=== PATIENT | male | born 1955 | race Caucasian/White ===

== ENCOUNTER 2016-10-14 13:12 | Inpatient (IN) | payer OTHER ==
--- NOTE | ~2016-10-14 | DS ---
Discharge Summary [facility] [address] [place]. [address] NAME: BELINDA FELDMAN : 59 STATUS : DIS IN PAT#: [id number] AGE: 61 ADM/REG DATE : 10/14/16 MR#: [id number] REPORT SERV DATE: 10/19/16 DICTATED BY: JOSE PERSON DATE: 10/18/16 REPORT STATUS : Draft TRANSCRIBED BY: MODL DATE: 10/18/16 ADMISSION DATE: 10/14/2016 DISCHARGE DATE: 10/18/2016 DISCHARGE DIAGNOSIS: 1. Acute flash pulmonary edema secondary to malignant hypertension causing acute hypoxic respiratory failure. 2. Acute kidney injury. 3. Diabetes type 2. 4. Obstructive sleep apnea on chronic CPAP. 5. Diabetic foot ulcer. 6. Malignant hypertension. 7. Likely hyperbaric pulmonary injury. 8. Chronic kidney disease stage 3. CONSULTATIONS: Renal. PERTINENT LABS: Creatinine elevation up to 3.73 down to 3.22 at time of discharge. DISCHARGE MEDICATIONS: Amlodipine 10 mg one tab p.o. daily, aspirin 81 mg one tab p.o. at bedtime, fenofibrate 160 mg one tab p.o. daily, Plavix 75 mg one tab p.o. daily, insulin pump, Zyrtec 10 mg one tab p.o. at bedtime, Ritalin 20 mg p.o. every morning and 10 mg at 1400, Bystolic 10 mg one tab p.o. daily, Prilosec 20 mg one tab p.o. daily, clonidine patch 0.1 mg transdermal q.7 days, simvastatin, Crestor 40 mg one tab p.o. at bedtime, one 1 cap probiotics [id number], Avalide is stopped at this time, B1 complex, Bydureon q.7 days , Catapres discontinued. Discharge followup with PCP in one week for blood pressure and BMP checks, followed by Dr. Hendrix as previously ordered in [facility]. Follow up with Nephrology in 2 weeks for BMP and blood pressure. Daily weights and blood pressure diary to be performed by patient twice a day. HOSPITAL COURSE: Please see H and P for complete details. HISTORY OF PRESENT ILLNESS: Briefly, Mr. Feldman is a 61-year-old male with past medical history of CKD stage 3, insulin-dependent diabetes with history of noncompliance and resultant diabetic foot ulcers under the care of Dr. Hendrix in Wound Care, who has had difficulty with his blood pressure for months now, who is undergoing hyperbaric oxygen chamber treatment, noted to have fairly sudden onset dyspnea with accelerated hypertension. Upon arrival to the emergency room, was noted to be in acute hypoxic respiratory failure requiring BiPAP, diuresis. The patient responded well to initial diuresis and BiPAP, and flash pulmonary edema had resolved fairly quickly in 24 to 48 hours. The patient did have subsequent also findings of DIAMANTE above his CKD that was resulted on lab work in next 24 to 48 hours, which also prompted Nephrology consultation. The patient was stopped off the patient's ARB and Bumex was also discontinued. As the patient's respiratory status had improved, the patient did have peak of creatinine and was monitored. Symptomatically, Discharge Summary [address] [address] NAME: BELINDA FELDMAN : 59 STATUS : DIS IN PAT#: [id number] AGE: 61 ADM/REG DATE : 10/14/16 MR#: [id number] REPORT SERV DATE: 10/19/16 DICTATED BY: JOSE PERSON DATE: 10/18/16 REPORT STATUS : Draft TRANSCRIBED BY: MODL DATE: 10/18/16 patient felt well, ambulatory with no pain. Blood pressure was significantly improved after placement on clonidine patch, as the patient's typical pressures at home had been ranging from 190s systolic and had improved to 120s over 50s by time of discharge. Nephrotoxins were held. The patient was able to be discharged home. All questions answered. Patient's family at bedside. DDN/MODL Jose Person MD / [id number]
--- NOTE | ~2016-10-14 | HP ---
History And Physical [address] [place]. [address] NAME: BELINDA FELDMAN : 59 STATUS : ADM IN [facility]#: [id number] AGE: 61 ADM/REG DATE : 10/14/16 MR#: [id number] REPORT SERV DATE: 10/15/16 DICTATED BY: SAILAJA TSAI DATE: 10/15/16 REPORT STATUS : Draft TRANSCRIBED BY: RAMIREZ DATE: 10/15/16 DATE OF ADMISSION: 10/14/2016 CHIEF COMPLAINT: Shortness of breath. HISTORY OF PRESENT ILLNESS: This is a 61-year-old gentleman with medical history significant for chronic kidney disease stage 3; diabetes mellitus; diabetes foot ulcer, being followed up at the [facility] by Dr. Hendrix; obstructive sleep apnea; chronic kidney disease; hypertension; history of right carotid stenosis, status post endarterectomy; insulin dependent diabetes, currently on insulin pump, who presented to the hospital with complaints of shortness of breath. The patient reports that he follows up at [facility] under the care of Dr. Hnedrix and usually goes for the hyperbaric oxygen therapy. He reports that he started hyperbaric oxygen, which he started about five weeks ago, usually goes about five days a week, has had three weeks of success with therapy. He reports that the treatment has been complicated by increased pressure in his head and has been told to may have had some biotrauma. However, he continues to tolerate the treatment fairly well without any significant complication. The patient reports that he noticed that in the last few days he has been having progressive shortness of breath, initially on exertion, and both at rest, has also noted some mild bilateral lower extremity swelling, abdominal distention with some facial puffiness. The patient reports that he has history of sleep apnea, noted that on the morning of presentation had some episodes of apnea while asleep. woke him up without any significant complication, was able to go back to sleep. The patient noted that he came for the hyperbaric treatments at the hospital today. While having this treatment, he had severe persistent, dry cough with significant shortness of breath. He noticed that at both treatment he was unable to breathe, both on exertion and at rest and decided to come to the emergency room for further evaluation. In the ER, the patient was noted to have an ABG of 7.34, PaCO2 of 41, PO2 of 56 with a chest x-ray consistent with flash pulmonary edema. The patient was given a dose of IV Lasix. The Hospitalist Team was called to admit the patient for further evaluation. PAST MEDICAL HISTORY: 1. Diabetic foot ulcer. 2. Insulin diabetes mellitus type 2. 3. Hypertension. 4. History of TIA. 5. History of coronary artery disease. 6. Hyperlipidemia, chronic kidney disease stage 3, sleep apnea, peripheral arterial disease, erectile dysfunction. PAST SURGICAL HISTORY: 1. Left toe amputation by Dr. Yañez. 2. Excision/debridement of skin subcutaneous tissue, muscle fascia of the right foot ulcer on 08/16/2016. 3. Carotid artery with stent placement. History And Physical [address] [address] NAME: BELINDA FELDMAN : 59 STATUS : ADM IN [facility]#: [id number] AGE: 61 ADM/REG DATE : 10/14/16 MR#: [id number] REPORT SERV DATE: 10/15/16 DICTATED BY: SAILAJA TSAI DATE: 10/15/16 REPORT STATUS : Draft TRANSCRIBED BY: RAMIREZ DATE: 10/15/16 SOCIAL HISTORY: Denies drinking alcohol, smoking cigarettes, or illicit drug use. FAMILY HISTORY: Significant for history of diabetes and nephropathy in his brother as well as some diabetes in his other members of the family, hypertension with some chronic kidney disease. ALLERGIES: NO KNOWN DRUG ALLERGY. HOME MEDICATIONS: 1. Aspirin 81 mg p.o. at bedtime. 2. Zyrtec 10 mg p.o. at bedtime. 3. Crestor 40 mg p.o. at bedtime. 4. Prilosec 20 mg p.o. daily. 5. Ritalin 20 mg p.o. every morning. 6. Ritalin 10 mg p.o. at 2 p.m. 7. Probiotics 1 tab p.o. daily. 8. Amlodipine 10 mg p.o. daily. 9. Avalide 300/12.5 one tab p.o. daily. 10.Plavix 75 mg p.o. daily. 11.Fenofibrate 750 mg p.o. daily. 12.B1 chromium 200 mcg p.o. daily. 13.Insulin aspart for insulin pump and sliding scale. 14.Insulin aspart, also on sliding scale. 15.Bydureon extended release injection 2 mg subcu every week. 16.Bystolic 10 mg p.o. daily. 17.Clonidine 0.1 mg p.o. daily. 18.Clonidine 0.1 mg greater than 160. REVIEW OF SYSTEMS: A 12-point review of system conducted essentially negative. Positive findings as per HPI. PHYSICAL EXAMINATION: VITAL SIGNS: Blood pressure 124/58, temperature 97, pulse 79, and saturating 94% on 10 L of oxygen. GENERAL: In acute respiratory distress, unable to speak in full sentences. Using accessory muscles for respiration. HEENT: Normocephalic atraumatic. Extraocular muscle intact. Pupils equal, round, and reactive. Not pale. Anicteric. NECK: No JVD. No cervical lymphadenopathy. CHEST: Nontender, equal expansion. LUNGS: Diffuse expiratory wheezes as well as diffuse crackles noted in all lung askew. ABDOMEN: Bowel sounds normoactive. Obese, nontender. No palpably enlarged organomegaly. EXTREMITIES: Noted for amputation of the left toe with a wound ulcer on the heel with dressing in place. Trace bilateral pitting edema. NEURO: Alert and oriented x3. Cranial nerve 2 through 12 intact. Strength 5/5 in all extremities. History And Physical [address] [address] NAME: BELINDA FELDMAN : 59 STATUS : ADM IN [facility]#: [id number] AGE: 61 ADM/REG DATE : 10/14/16 MR#: [id number] REPORT SERV DATE: 10/15/16 DICTATED BY: SAILAJA TSAI DATE: 10/15/16 REPORT STATUS : Draft TRANSCRIBED BY: MODL DATE: 10/15/16 LABORATORY DATA: Blood gas pH 7.37, pCO2 of 41, PaO2 of 55. Hematology: WBC 8.1, hemoglobin 11.8, hematocrit 35.5, MCV 86.4, platelet 223. PT 13.0. INR 1.0. BNP 255.9. IMAGING: Chest x-ray: Pulmonary edema pattern per history. This occurred while the patient was in hyperbaric chamber. Cases have been reported of pulmonary edema related to hyperbaric therapy. Additional noncardiac causes could be considered such as allergic reaction and aspiration. SUMMARY: This is a 61-year-old gentleman with medical history significant for coronary artery disease, diabetes mellitus, foot ulcer, chronic kidney disease stage 3, insulin diabetes mellitus, who presented to the hospital with complaints of shortness of breath while receiving hyperbaric oxygen concerning for acute respiratory failure with flash pulmonary edema. ASSESSMENT AND PLAN: 1. Acute respiratory failure secondary to flash pulmonary edema, may be related to hyperbaric oxygen-induced injury. There have been case report, also there have been case reports with similar presentation, and however, it is imperative to rule out a congestive heart failure in this patient as most patients who present with flash pulmonary edema have evidence of reduced EF. Hence, I will start the patient on IV Bumex drip, place patient on BiPAP, monitor strict I's and O's, daily weight, and obtain an echocardiogram in the morning. Chronic kidney disease with creatinine of 2.37. The patient's creatinine is at baseline. We will resume diuretics as dictated above. We will continue to monitor cranial function closely. 2. Diabetic foot ulcer. The patient under the care of Dr. Hendrix. We will consult Dr. Hendrix for further recommendation. 3. Coronary artery disease. No evidence of chest pain. Troponin less than 0.02. EKG not consistent with NSTEMI or STEMI. No evidence of ischemia. We will continue to monitor patient closely. We will resume outpatient cardiac medications. 4. Obstructive sleep apnea. We will continue BiPAP treatment at this time and switch to CPAP when patient is able to tolerate. 5. Insulin, treated diabetes mellitus. The patient has an insulin pump. Also uses Bydureon. Please look into the list of medication for the patient at this time. He says that he does a better job to control his blood sugar while in the hospital using the insulin pump and Bydureon. Hence, we will monitor patient's blood glucose and allow patient to use his insulin pump as needed. ADMISSION DISPOSITION: Cardiac tele. ADMISSION STATUS: Inpatient. CODE STATUS: Full code. DVT prophylaxis. On subcu heparin. History And Physical [address] [place] [facility] [address] NAME: BELINDA FELDMAN : 59 STATUS : ADM IN [facility]#: [id number] AGE: 61 ADM/REG DATE : 10/14/16 MR#: [id number] REPORT SERV DATE: 10/15/16 DICTATED BY: SAILAJA TSAI DATE: 10/15/16 REPORT STATUS : Draft TRANSCRIBED BY: MODL DATE: 10/15/16 KELLIO/MODL Sailaja Tsai MD / [id number] CC: MD Sean Abreu M.D. John Gwin Jr., M.D. Sachin V Phade, M.D.
--- NOTE | ~2016-10-14 | CN ---
Consultation Report [facility] [address] [place]. [address] NAME: BELINDA FELDMAN : 59 STATUS : ADM IN PAT#: [id number] AGE: 61 ADM/REG DATE : 10/14/16 MR#: [id number] REPORT SERV DATE: 10/17/16 DICTATED BY: MAYA HERNANDEZ DATE: 10/16/16 REPORT STATUS : Draft TRANSCRIBED BY: MODL DATE: 10/16/16 NEPHROLOGY CONSULTATION DATE OF CONSULTATION: 10/16/2016 REASON FOR CONSULTATION: Acute kidney injury. HISTORY OF PRESENT ILLNESS: Mr. Feldman is a 61-year-old white male with chronic kidney disease, stage 3, followed by Dr. Brandon Hall in our practice. He also has a past medical history of diabetes mellitus type 2, hypertension, coronary artery disease, obstructive sleep apnea, and peripheral vascular disease. He has been receiving hyperbaric oxygen therapy for a wound on his right foot, which has steadily improved. He states that he started therapy around five weeks ago and had noticed a few days prior to presentation that he had developed progressive shortness of breath. It originally started with exertion, but then progressed to rest. He had mild lower extremity swelling and some abdominal distention and facial puffiness. He presented on Friday of this week for hyperbaric oxygen therapy and had coughing and difficulty with breathing. He finished his treatment and the symptoms progressed so he presented to the ER. On presentation, his blood pressure was relatively stable. He had O2 saturations in the 80s and had diffuse pulmonary edema on chest x-ray. He was placed on a Bumex drip for the past two days and this has had brisk diuresis. His breathing has dramatically improved and his chest x-ray now shows resolution of pulmonary edema. His creatinine, however, has increased from 2.3 to 3.7. Urine studies are not presently available. His and daughter both state that he has had progressive problems with hypertension over the past several months and has required additional blood pressure medication adjustment. He last saw Dr. Hall in August and his urinalysis showed 100 mg/dL of protein, and he had a creatinine of 2.3 at that time. He did have a parenchymal renal artery scan, which showed no obstruction or hydronephrosis. He denies NSAID use or other nephrotoxins. Presently, he is resting comfortably, the Bumex drip has been stopped and he has no acute complaints. PAST MEDICAL HISTORY: 1. Diabetic foot ulcer. 2. Chronic kidney disease, stage 3. Baseline creatinine 2.2. 3. Insulin-dependent diabetes mellitus for over 15 years. 4. Hypertension. 5. History of TIA with right endarterectomy. 6. Coronary artery disease. 7. Hyperlipidemia. 8. Obstructive sleep apnea. 9. Peripheral vascular disease. 10.Erectile dysfunction. PAST SURGICAL HISTORY: 1. Left toe amputation by Dr. Yañez. Consultation Report [address] [place]. [address] NAME: BELINDA FELDMAN : 59 STATUS : ADM IN PAT#: [id number] AGE: 61 ADM/REG DATE : 10/14/16 MR#: [id number] REPORT SERV DATE: 10/17/16 DICTATED BY: MAYA HERNANDEZ DATE: 10/16/16 REPORT STATUS : Draft TRANSCRIBED BY: MODMickie DATE: 10/16/16 2. Excision and debridement of skin and subcutaneous tissue, right foot ulcer. 3. Right-sided carotid endarterectomy. SOCIAL HISTORY: No alcohol, drugs, or smoking. FAMILY HISTORY: Significant for diabetes, hypertension, and chronic kidney disease. ALLERGIES: NO KNOWN DRUG ALLERGIES. HOME MEDICATIONS: 1. Aspirin 81 daily. 2. Zyrtec 10 daily. 3. Crestor 40 daily. 4. Prilosec 20 daily. 5. Ritalin 20 q.a.m. and 10 q.p.m. 6. Probiotics one daily. 7. Amlodipine 10 daily. 8. Avalide 300/12.5 daily. 9. Plavix 75 daily. 10.Fenofibrate 160 daily. 11.Insulin for insulin pump per sliding scale. 12.Bydureon 2 mg subcu every week. 13.Bystolic 10 daily. 14.Clonidine 0.1 daily. REVIEW OF SYSTEMS: All systems reviewed and negative excluding those mentioned and highlighted in history of present illness. PHYSICAL EXAMINATION: VITAL SIGNS: Blood pressure 163/73, temperature 96, pulse 82, respiratory rate 18. GENERAL: This is a pleasant white male, resting comfortably, in no acute distress. HEENT: Normocephalic, atraumatic. Oropharynx clear. No exudate. NECK: Supple. No JVD or thyromegaly. No carotid bruits. Trachea midline. No stridor. CARDIOVASCULAR: Regular rate and rhythm. S1, S2 without rubs or gallops. Point of maximal impulse nondisplaced. RESPIRATORY: Clear to auscultation bilaterally. No wheeze, rhonchi, tachypnea, or accessory muscles in use. GI: Abdomen is soft, nontender, nondistended. No hepatosplenomegaly appreciated. EXTREMITIES: No cyanosis, clubbing, or edema. LYMPH: No supraclavicular, cervical, inguinal, or axillary adenopathy. SKIN: No rash or breakdown. Normal turgor. LABS AND DIAGNOSTIC DATA: Sodium 141, potassium 4.5, chloride 102, bicarb 27, BUN 77, creatinine 3.7, glucose 208. Consultation Report [id number] [place]. [address] NAME: BELINDA FELDMAN : 59 STATUS : ADM IN [facility]#: [id number] AGE: 61 ADM/REG DATE : 10/14/16 MR#: [id number] REPORT SERV DATE: 10/17/16 DICTATED BY: MAYA HERNANDEZ DATE: 10/16/16 REPORT STATUS : Draft TRANSCRIBED BY: RAMIREZ DATE: 10/16/16 ASSESSMENT: 1. Acute kidney injury on chronic kidney disease, stage 3 (baseline creatinine 2.2 to 2.3), suspect secondary to diuresis. 2. Acute pulmonary edema in the setting of hyperbaric oxygen therapy. His echocardiogram showed normal left ventricular function and no significant evidence of diastolic dysfunction. Perhaps he has nephrotic syndrome or this was possibly a reaction to hyperbaric oxygen therapy. 3. Diabetes mellitus. 4. Volume overload, resolved. 5. New onset malignant hypertension. PLAN: 1. Agree with cessation of diuretics for now. 2. Check renal arterial scan to rule out renal artery stenosis prompting malignant hypertension and pulmonary edema. 3. Check spot urine [id number] ratio. 4. Keep until serum creatinine has improved and is steadily better. Thank you for the consultation. KIM/RAMIREZ Maya Hernandez M.D. / [id number] CC: MD Sean Rubio M.D.
[2016-10-14 12:43] LABS: BASOPHILS 0.2 %; BASOPHILS ABSOLUTE 0.02 10/3/uL (0.0-0.16); EOSINOPHILS ABSOLUTE 0.16 10/3/uL (0.0-0.53); HEMATOCRIT 35.5 % (40.0-51.0); HEMOGLOBIN 11.8 g/dL (13.6-17.8); IMMATURE GRANULOCYTES 0.4 %; IMMATURE GRANULOCYTES ABSOLUTE 0.03 10/3/uL (0.0-0.11); LYMPHOCYTES 17.3 %; MANUAL DIFF NO %; MEAN CORPUS HGB CONC 33.2 g/dL (32.0-36.0); MEAN CORPUSCULAR HEMOGLOB 28.7 pg (26.0-34.0); MEAN CORPUSCULAR VOLUME 86.4 fL (80-100); MEAN PLATELET VOLUME 10.3 fL (9.2-13.0); MONOCYTES 6.4 %; MONOCYTES ABSOLUTE 0.52 10/3/uL (0.21-1.20); NEUTROPHILS 73.7 %; NEUTROPHILS ABSOLUTE 5.94 10/3/uL (2.02-8.40); PLATELET COUNT 223 10/3/uL (150-400); RBC DISTRIBUTION WIDTH 13.7 % (12.0-16.0); RED CELL COUNT 4.11 10/6/uL (4.7-6.1); WHITE BLOOD CELLS 8.1 10/3/uL (4.5-10.5)
[2016-10-14 12:49] LABS: ALLENS TEST Pos; BE (BASE EXCESS) -1.8 MEQ/L (0 +/- 2.5); DEVICE Nasal Cannula 6L; HCO3 (ACTUAL BICARBONATE) 23.3 MEQ/L (23-27); HEMOBLOGIN CONTENT 12.2 G/DL (14-18); INSTRUMENT SERIAL # 8087; METHEMOGLOBIN 0.1 % (0-3); O2 CONTENT 15.1 VOL% (18-24); OPERATOR ID 14335; PCO2 (CO2 TENSION) 41 MMHG (35-45); PO2 (O2 TENSION) 56 MMHG (79-93); SAMPLE Arterial; pH 7.37 (7.37-7.43)
[2016-10-14 12:50] LABS: PARTIAL THROMBO TIME 25.2 SEC (22.5-37.2)
[2016-10-14 12:53] LABS: D-DIMER QUANTITATIVE 0.44 ug/mLFEU (< 0.50)
[2016-10-14 12:59] LABS: BUN (BLOOD UREA NITROGEN) 38 MG/DL (6-23); CHEST PAIN PROFILE TAT 0 Hrs 20 Mins; CHLORIDE, SERUM 110 MMOL/L (96-112); CO2 (CARBON DIOXIDE) 26 MMOL/L (24-34); CREATININE 2.37 MG/DL (0.70-1.30); GFR AFRICAN AMERICAN 33 ML/MIN (>=60); GFR NON AFRICAN AMERICAN 29 ML/MIN (>=60); POTASSIUM, SERUM 4.9 MMOL/L (3.5-5.3); SODIUM, SERUM 144 MMOL/L (135-148); TROPONIN I <0.02 NG/ML (<0.05)
[2016-10-14 13:01] LABS: CALCIUM, SERUM 8.3 MG/DL (8.5-10.4); GLUCOSE, SERUM 120 MG/DL (60-99)
[~2016-10-14 13:12] MED LIST: APRES25 PO; ASAB PO; AVALIDE PO; BL CHROMIUM200 MCG PO; BYDUREON2 MG SC; BYSTOLIC10 MG PO; CAT1 PO; COREG25 PO; COZ25 PO; CRESTOR40 MG PO; GLUCOPHAGE1000 MG PO; INSNOVR SC; K500 PO; LANTUS SC; LOFIBRA160 MG PO; MONODOX100 MG PO; NORV10 PO; NOVLOGPUMP SC; NOVOLOG SC; PLAVIX PO; PRAVACHOL40 MG PO; PRILO PO; PRILOSEC40 MG PO; PRIN10 PO; PROBIOTIC PO; REG PO; RITALIN; RITALIN10 PO; RITALIN20 PO; SILVADENE1 % TOP; ZANTAC150 MG PO; ZOCOR20 PO; ZYRTEC ALLGY10 MG PO
[2016-10-14 18:05] LABS: FREE T4 0.99 NG/DL (0.76-1.46); PHOSPHORUS, SERUM 2.6 MG/DL (2.5-4.5)
[2016-10-15 05:02] LABS: BASOPHILS 0 %; EOSINOPHILS 0 %; HEMATOCRIT 36.7 % (40.0-51.0); HEMOGLOBIN 12.4 g/dL (13.6-17.8); IMMATURE GRANULOCYTES 0.3 %; IMMATURE GRANULOCYTES ABSOLUTE 0.03 10/3/uL (0.0-0.11); LYMPHOCYTES 6.8 %; MEAN CORPUS HGB CONC 33.8 g/dL (32.0-36.0); MEAN CORPUSCULAR HEMOGLOB 29.2 pg (26.0-34.0); MEAN CORPUSCULAR VOLUME 86.4 fL (80-100); MEAN PLATELET VOLUME 10.5 fL (9.2-13.0); MONOCYTES 4.3 %; MONOCYTES ABSOLUTE 0.44 10/3/uL (0.21-1.20); NEUTROPHILS 88.6 %; NEUTROPHILS ABSOLUTE 9.14 10/3/uL (2.02-8.40); PLATELET COUNT 246 10/3/uL (150-400); RBC DISTRIBUTION WIDTH 13.4 % (12.0-16.0); RED CELL COUNT 4.25 10/6/uL (4.7-6.1); WHITE BLOOD CELLS 10.3 10/3/uL (4.5-10.5)
[2016-10-15 05:07] LABS: MANUAL DIFF NO %
[2016-10-15 05:29] LABS: ALBUMIN 3.4 G/DL (3.5-5.0); CALCIUM, SERUM 9.1 MG/DL (8.5-10.4); CHLORIDE, SERUM 104 MMOL/L (96-112); CO2 (CARBON DIOXIDE) 25 MMOL/L (24-34); CREATININE 2.83 MG/DL (0.70-1.30); GFR AFRICAN AMERICAN 27 ML/MIN (>=60); GFR NON AFRICAN AMERICAN 23 ML/MIN (>=60); PHOSPHORUS, SERUM 3.1 MG/DL (2.5-4.5); POTASSIUM, SERUM 5.3 MMOL/L (3.5-5.3); SODIUM, SERUM 140 MMOL/L (135-148)
[2016-10-15 05:31] LABS: BUN (BLOOD UREA NITROGEN) 48 MG/DL (6-23); GLUCOSE, SERUM 340 MG/DL (60-99)
[2016-10-16 05:28] LABS: CALCIUM, SERUM 8.4 MG/DL (8.5-10.4); CHLORIDE, SERUM 102 MMOL/L (96-112); CO2 (CARBON DIOXIDE) 27 MMOL/L (24-34); POTASSIUM, SERUM 4.5 MMOL/L (3.5-5.3); SODIUM, SERUM 141 MMOL/L (135-148)
[2016-10-16 05:29] LABS: BUN (BLOOD UREA NITROGEN) 77 MG/DL (6-23); CREATININE 3.73 MG/DL (0.70-1.30); GFR AFRICAN AMERICAN 19 ML/MIN (>=60); GFR NON AFRICAN AMERICAN 17 ML/MIN (>=60); GLUCOSE, SERUM 208 MG/DL (60-99)
[2016-10-16 22:41] LABS: ASCORBIC ACID (UR NOT ORDER) NEG (NEG); BILIRUBIN, URINE NEGATIVE (NEG); KETONE, URINE NEGATIVE (NEG); LEUKOCYTE ESTERASE(NOT OR NEG (NEG); WBC (NOT ORDERED) (RFLEX) 1 (0-5)
[2016-10-17 05:59] LABS: ALBUMIN 3.2 G/DL (3.5-5.0); CALCIUM, SERUM 8.7 MG/DL (8.5-10.4); CHLORIDE, SERUM 104 MMOL/L (96-112); CO2 (CARBON DIOXIDE) 28 MMOL/L (24-34); GFR AFRICAN AMERICAN 21 ML/MIN (>=60); GFR NON AFRICAN AMERICAN 18 ML/MIN (>=60); POTASSIUM, SERUM 4.6 MMOL/L (3.5-5.3); SODIUM, SERUM 140 MMOL/L (135-148)
[2016-10-17 06:04] LABS: BUN (BLOOD UREA NITROGEN) 73 MG/DL (6-23); GLUCOSE, SERUM 144 MG/DL (60-99); PHOSPHORUS, SERUM 4.3 MG/DL (2.5-4.5)
[2016-10-18 05:07] LABS: CALCIUM, SERUM 8.5 MG/DL (8.5-10.4); CHLORIDE, SERUM 106 MMOL/L (96-112); CO2 (CARBON DIOXIDE) 27 MMOL/L (24-34); CREATININE 3.22 MG/DL (0.70-1.30); GFR AFRICAN AMERICAN 23 ML/MIN (>=60); GFR NON AFRICAN AMERICAN 20 ML/MIN (>=60); POTASSIUM, SERUM 4.5 MMOL/L (3.5-5.3); SODIUM, SERUM 141 MMOL/L (135-148)
[2016-10-18 05:08] LABS: BUN (BLOOD UREA NITROGEN) 62 MG/DL (6-23); GLUCOSE, SERUM 210 MG/DL (60-99)
[2016-10-18] MEDS ORDERED: CATPATCH1 TOP (12:01)
[2017-04-16] MEDS ORDERED: TRULICITY1.5 MG/0.5 SQ (11:57)
[2017-04-16] MEDS ORDERED: CRESTOR40 MG PO (11:58)
[2017-04-16] MEDS ORDERED: HALF81 PO (11:58)
[2017-04-16] MEDS ORDERED: NOVLOGPUMP SC (11:58)
[2017-04-16] MEDS ORDERED: ZYRTEC ALLGY10 MG PO (11:58)
[2017-04-16] MEDS ORDERED: PROBIOTIC PO (11:59)
[2017-04-16] MEDS ORDERED: RITALIN10 PO (11:59)
[2017-04-16] MEDS ORDERED: RITALIN20 PO (11:59)
[2017-04-16] MEDS ORDERED: NORV10 PO (11:59)
[2017-04-16] MEDS ORDERED: PREV30 PO (11:59)
[2017-04-16] MEDS ORDERED: BEN25UDL PO (12:00)
[2017-04-16] MEDS ORDERED: CATAPRES2 TOP (12:01)
[2017-04-16] MEDS ORDERED: LOFIB160 PO (12:01)
[2017-04-16] MEDS ORDERED: PLAVIX PO (12:01)
[2017-04-16] MEDS ORDERED: BYSTOLIC20 MG PO (12:01)
[2017-04-16] MEDS ORDERED: APRES50 PO (12:02)
[2017-04-16] MEDS ORDERED: DEMA20 PO (12:02)
[2017-04-16] MEDS ORDERED: PATIROMER PO (12:03)
[2017-04-16] MEDS ORDERED: FLONASE NAS (12:03)
[2017-04-16] MEDS ORDERED: K500 PO (12:03)
[2017-04-16] MEDS ORDERED: PLEXUS DRINK PO (12:09)
== END 2016-10-18 12:34 | disposition home or self-care (01) | DRG 189 ==
LOC: ER 13:12 → 5NO 15:17
PROVIDERS: Emergency Medicine; Hospitalist; Internal Medicine Nephrology; Student in an Organized Health Care Education/Training Program
DX: J81.0 Acute pulmonary edema (principal); J96.01 Acute respiratory failure with hypoxia; N17.9 Acute kidney failure, unspecified; E11.621 Type 2 diabetes mellitus with foot ulcer; I25.10 Atherosclerotic heart disease of native coronary artery without angina pectoris; I12.9 Hypertensive chronic kidney disease with stage 1 through stage 4 chronic kidney disease, or unspecified chronic kidney disease; N18.3 Chronic kidney disease, stage 3 (moderate); G47.33 Obstructive sleep apnea (adult) (pediatric); Z79.4 Long term (current) use of insulin; Z96.41 Presence of insulin pump (external) (internal); Z79.02 Long term (current) use of antithrombotics/antiplatelets; Z79.82 Long term (current) use of aspirin; Z86.73 Personal history of transient ischemic attack (TIA), and cerebral infarction without residual deficits; Z99.81 Dependence on supplemental oxygen; L97.512 Non-pressure chronic ulcer of other part of right foot with fat layer exposed
CPT/HCPCS: 36600; 71010; 71020; 80048; 80069; 81001; 82570; 82805; 82962; 83735; 83880; 84100; 84156; 84439; 84443; 84484; 85025; 85379; 85610; 85730; 90686; 93005; 93975; 94640; 94660; 96374; 99291; A9270-GY; C8929; G0008; G0277; J1170; J2930; Q9957

== ENCOUNTER 2016-11-04 13:07 | Observation (INO) | payer OTHER ==
--- NOTE | ~2016-11-04 | CN ---
Consultation Report [facility] [address] [facility] [place]. [address] NAME: BELINDA FELDMAN : 59 STATUS : ADM Andrés PAT#: [id number] AGE: 61 ADM/REG DATE : 11/04/16 MR#: [id number] REPORT SERV DATE: 11/05/16 DICTATED BY: ANABEL KNUTSON DATE: 11/05/16 REPORT STATUS : Draft TRANSCRIBED BY: MODL DATE: 11/05/16 PULMONARY CONSULTATION DATE OF CONSULTATION: 11/05/2016 REASON FOR CONSULTATION: Flash pulmonary edema. HISTORY OF PRESENT ILLNESS: Mr. Feldman is a 61-year-old white male, lifelong nonsmoker, without formal pulmonary diagnosis, who was admitted with pulmonary edema and volume overload. Pulmonary was consulted for opinion regarding recurrent pulmonary edema. The patient states that he has had increasing shortness of breath and weight gain of 8 to 10 pounds over the last one week. He notes increasing generalized edema. He also describes wheezing while supine since the onset of his dyspnea. He denies cough, sputum production, fever, chills, night sweats, hemoptysis, or chest pain. He was evaluated by his primary care physician and found to have elevated blood pressure, so he was referred for evaluation and admission. Since his admission, he has been treated with diuretics and feels significantly better. He states he was evaluated by Nephrology and advised that his symptoms are likely related to acute on chronic kidney disease. He had a prior episode of pulmonary edema a few weeks ago. He was being treated for a right sided diabetic foot ulcer with hyperbaric oxygen. After completing his dive and exiting the chamber, he noted significant shortness of breath, so he was sent for evaluation and admission. At that time, he was found to have significant pulmonary edema that was thought to be a side effect of hyperbaric oxygen therapy, so that treatment was discontinued. He complains of hypersomnolence and non-restorative sleep. He states he was advised by his primary care physician and he needs a sleep study, but he is yet to schedule that study. He states he has never been on CPAP or BiPAP. PAST MEDICAL HISTORY: 1. He denies a past medical history of pulmonary diseases. 2. Diabetes mellitus. 3. Right diabetic foot ulcer - treatment ongoing. 4. Hypertension. 5. Coronary artery disease. 6. Hyperlipidemia. 7. Chronic kidney disease. 8. Previous TIA. 9. Peripheral artery disease. 10.Erectile dysfunction. 11.Amputation of left toe. 12.Carotid artery disease with prior stent placement. FAMILY HISTORY: Daughter has asthma from childhood. Consultation Report [address] [place]. [address] NAME: BELINDA FELDMAN : 59 STATUS : ADM Andrés PAT#: [id number] AGE: 61 ADM/REG DATE : 11/04/16 MR#: [id number] REPORT SERV DATE: 11/05/16 DICTATED BY: ANABEL KNUTSON DATE: 11/05/16 REPORT STATUS : Draft TRANSCRIBED BY: MODL DATE: 11/05/16 SOCIAL HISTORY: Mr. Feldman is a lifelong nonsmoker, but does report significant secondhand smoke exposure years ago. He denies past/present drug use, chewing tobacco, or other occupational exposures. He rarely drinks alcohol. He works as a real estate paralegal. He is and has one daughter. MEDICATIONS: Outpatient and inpatient medications were reviewed and are as documented in the record. As an outpatient, he was on no pulmonary medications. ALLERGIES: HE DENIES MEDICATION ALLERGIES. REVIEW OF SYSTEMS: A 14-point system review was conducted and is remarkable for the symptoms as described in the history of present illness. PHYSICAL EXAMINATION: VITAL SIGNS: Temperature 96.6 degrees, heart rate 72, blood pressure 141/65, respiratory rate 16, and oxygen saturation 94% on room air. GENERAL: Pleasant white male. Alert, oriented, no apparent distress. HEENT: Normocephalic. Atraumatic. There is no scleral icterus. The conjunctivae are clear. The oropharynx is clear. NECK: Supple. No lymphadenopathy was noted. LUNGS: Good effort. The lungs are clear to auscultation bilaterally. HEART: Regular rate and rhythm. No ectopy was noted. No S3 or S4 was noted. ABDOMEN: Soft. Nontender. Nondistended. There are normal bowel sounds in all four quadrants. BILATERAL EXTREMITIES: There is no clubbing, cyanosis, or edema. There is a right lower extremity wound with a dressing in place. NEUROLOGICAL: Nonfocal exam. SKIN: No rashes were noted. LABORATORY RESULTS: Labs were reviewed and are as documented record. Notable labs include a white blood cell count of 5.5. BNP on admission was 273.2. BUN is 40 with a creatinine of 2.74. Arterial blood gas on room air revealed a pH of 7.44, pCO2 of 39, and pO2 of 61. IMAGING: The chest x-ray done this admission revealed cardiomegaly and pulmonary edema. ASSESSMENT AND PLAN: Mr. Feldman is a 61-year-old white male, lifelong nonsmoker, with pulmonary edema likely secondary to acute on chronic kidney disease and his volume status. He does have evidence of volume overload on chest x-ray. Per available information, he has had a cardiac workup that was unremarkable. Recommend diuresis. Consultation Report [place] [id number] [facility] [place]. [address] NAME: BELINDA FELDMAN : 59 STATUS : ADM Andrés PAT#: [id number] AGE: 61 ADM/REG DATE : 11/04/16 MR#: [id number] REPORT SERV DATE: 11/05/16 DICTATED BY: ANABEL KNUTSON DATE: 11/05/16 REPORT STATUS : Draft TRANSCRIBED BY: MODMickie DATE: 11/05/16 Doubt, he has any significant lung disease as he is a lifelong nonsmoker and was asymptomatic prior to the onset of his current episode. No inpatient intervention is needed. We will schedule outpatient PFTs to evaluate his lung function when he is at his baseline. As noted above, he has complaints consistent with possible obstructive sleep apnea. He plans to schedule an outpatient polysomnogram after discharge. Thank you very much for this consultation. Please call again if further assistance is needed. PS/RAMIREZ Anabel Knutson M.D. / [id number] CC: MD Sean Rg M.D.
--- NOTE | ~2016-11-04 | HP ---
History And Physical [place] [id number] [facility] [place]. [address] NAME: BELINDA FELDMAN : 59 STATUS : ADM Andrés PAT#: [id number] AGE: 61 ADM/REG DATE : 11/04/16 MR#: [id number] REPORT SERV DATE: 11/05/16 DICTATED BY: JOSE PERSON DATE: 11/04/16 REPORT STATUS : Draft TRANSCRIBED BY: MODL DATE: 11/04/16 DATE OF ADMISSION: 11/04/2016 CHIEF COMPLAINT: Shortness of breath. HISTORY OF PRESENT ILLNESS: The patient is a 61-year-old male with recent admission for flash pulmonary edema due to accelerated hypertension who presents with increased fluid, weight gain approximately 10 pounds over the last week, and progressive shortness of breath and progressive swelling. The patient reports that since his discharge, he was doing well. 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 He did go ti see his steam setter PA or THERAPY MANAGER this week for Dr. Hall. Creatinine was looking better. The patient was encouraged to increase fluid intake and has since gained about 8-10 pounds since and subsequently has had increased shortness of breath. The patient additionally when seen by PCP noted to have high blood pressures again although while inpatient was very well controlled on therapy for multiple days but recently had increase in his clonidine patch doubling dose and still was noted to be elevated. Blood pressure was improved upon arrival in the emergency room with IV hydralazine which is the best it has been over this week, he has had his weight gain. The symptoms have been constant, moderate severity. No pain, chest pain. Does have shortness of breath with swelling. The patient also reports that he missed one appointment with Dr. Hendrix due to hospital visits and last week, Dr. Hendrix was out of town so he has missed multiple appointments for his right foot although he was told that symptoms were significantly improved after hospital stay due to bed rest. Symptoms of shortness of breath worsened with lying down and improved by sitting up. Still currently present. The patient is trying to get appointment scheduled for sleep study but has not had appointment yet and has not been on CPAP or BiPAP. ADDITIONAL REVIEW OF SYSTEMS: Negative except for that noted in the HPI. PAST MEDICAL HISTORY: Diabetic foot ulcer, type 2 diabetes, insulin dependent, hypertension, TIA, coronary artery disease, hyperlipidemia, CKD stage 3, sleep apnea, peripheral arterial disease, and erectile dysfunction. SURGICAL HISTORY: Left toe amputation by Dr. Yañez, excision debridement of skin tissue, muscle fascia of the right foot ulcer on 08/16/2016, carotid artery with stent placement. SOCIAL HISTORY: No alcohol, illicits, or drugs. Accompanied by at bedside. FAMILY HISTORY: For diabetes, diabetic nephropathy, hypertension, and CKD. ALLERGIES: NO KNOWN DRUG ALLERGIES BUT HIS BODY WAS VERY SENSITIVE TO LASIX DRIP CAUSING CREATININE ELEVATION. CURRENT MEDICATIONS: Norvasc, aspirin, Zyrtec, B1, Catapres increased to 0.2 mg topically, Plavix, Trulicity, fenofibrate, Flonase, insulin, ketotifen, Ritalin, probiotic, Bystolic, History And Physical [address] [address] NAME: BELINDA FELDMAN : 59 STATUS : ADM Andrés PAT#: [id number] AGE: 61 ADM/REG DATE : 11/04/16 MR#: [id number] REPORT SERV DATE: 11/05/16 DICTATED BY: JOSE PERSON DATE: 11/04/16 REPORT STATUS : Draft TRANSCRIBED BY: RAMIREZ DATE: 11/04/16 Isela Morales. PHYSICAL EXAMINATION: VITAL SIGNS: The patient's blood pressure initially 182/80 down to 145/50, temperature 98.6, pulse 76, respirations 16, O2 sats 96%. GENERAL: No acute distress. Well developed, well nourished, obese. EYES: No scleral icterus. EOMI. ENT: Nares patent. Tongue midline. RESPIRATORY: Clear upper lung askew with diminished lower lung askew. No wheezes. CV: Regular rate. Trace edema in lower extremities. No JVD. GI: Soft, nontender. Central obesity. : Deferred. MUSCULOSKELETAL: Moves all extremities. Right foot in wrap, left foot greater toe amputated. SKIN: Warm dry. He has had mild excoriations on the skin on ortega areas, does have approximately 1+ edema bilaterally. HEME: No bleeding or bruising. NEURO: Alert and oriented. Moves all extremities. PSYCH: Appropriate mood and affect. LABS: Chest portable does have mild fullness and pulmonary vasculature with right perihilar and bibasilar atelectasis. BNP 273.2. Sodium 143, potassium 5.3, BUN and creatinine 41 and 2.48 while recently was 3.22. Glucose 175, troponin negative, magnesium 2.2. Calcium 9.1. Heme profile; WBC 5.8, H and H 12 and 36.9, platelets 221, INR 1.1. EKG: Normal sinus rhythm, rate of 75, QTc 442. ASSESSMENT AND PLAN: 1. Pulmonary edema. 2. Obstructive sleep apnea. 3. Chronic kidney disease. 4. Accelerated axillary hypertension. 5. Obesity. 6. Leg and foot diabetic ulcers. PLAN: 1. For pulmonary edema, this is patient's repeat episode with mild exacerbation improved, does have history of accelerated hypertension. The patient was well controlled at recent discharge. The patient was to have sleep study which the patient has not scheduled yet. This was all ordered outpatient at last most recent discharge. Since the patient has not been on BiPAP, CPAP, the patient has had increased requirements of blood pressure medications as the patient has had difficult to control blood pressure. Again, the patient additionally was told to increase fluid intake and has now gained 8 pounds over the last week causing additional component of edema. We will ask Pulmonary to evaluate as the patient has repeated episodes of I believe this is likely secondary to accelerated hypertension compounded by CKD, ultimately likely from sleep apnea as the patient was well controlled with good fluid input and output and blood pressure. Pulmonary edema was improved when on BiPAP and CPAP and since off BiPAP at home has History And Physical [address] [address] NAME: BELINDA FELDMAN : 59 STATUS : ADM Andrés PAT#: [id number] AGE: 61 ADM/REG DATE : 11/04/16 MR#: [id number] REPORT SERV DATE: 11/05/16 DICTATED BY: JOSE PERSON DATE: 11/04/16 REPORT STATUS : Draft TRANSCRIBED BY: MODL DATE: 11/04/16 likely had a catecholamine surge throughout night with difficulty and poor sleeping. The patient has been supplementing his fatigue with Ritalin which is also likely compounding component of accelerated hypertension. 2. Obstructive sleep apnea. We will place on BiPAP 4 on off and continue throughout night and ABG prior to and after for better evaluation by Pulmonary as this is the patient's repeat episode in one month. 3. CKD stage 3, followed by Dr. Hall. As the patient is gentle and fairly sensitive to diuretics, family requesting nephrology evaluation also. We will notify of admission as the patient was recently seen this week. 4. Accelerated hypertension. Continue clonidine patch p.r.n. hold Ritalin, anticipate improvement with blood pressure with BiPAP. 5. Obesity, difficult for weight loss as the patient is fairly nonweightbearing due to foot ulcers. 6. Diabetic foot ulcers. Diabetic foot, follows with Dr. Hendrix and notify Wound Care. We will observe overnight with BiPAP support. 7. Disposition pending respiratory improvement, blood pressure improvement, hopeful arrangement of outpatient sleep study and Pulmonary and Nephrology evaluation. DDN/MODL Jose Person MD / [id number] CC: MD Sean Rodrigez M.D.
--- NOTE | ~2016-11-04 | DS ---
Discharge Summary [place] [address] [place]. [address] NAME: BELINDA FELDMAN : 59 STATUS : DIS Andrés PAT#: [id number] AGE: 61 ADM/REG DATE : 11/04/16 MR#: [id number] REPORT SERV DATE: 11/07/16 DICTATED BY: ABISAI MURPHY DATE: 11/06/16 REPORT STATUS : Draft TRANSCRIBED BY: MODL DATE: 11/06/16 ADMISSION DATE: 11/04/2016 DISCHARGE DATE: 11/06/2016 PROCEDURES DONE: 1. On 11/04/2016, chest x-ray PA and lateral: Mild fullness of pulmonary vasculatures with right perihilar and bibasilar atelectasis. 2. On 11/05/2016, ultrasound of abdomen: Gallbladder, common bile duct, liver normal, kidneys normal, pancreas and aorta attempted, but not well seen. Common bile duct, spleen and vena cava normal. 3. On 11/05/2016, chest x-ray: Cardiomegaly with developing perihilar edema. CONSULTATIONS: 1. Anabel Echeverria M.D. for Pulmonary. 2. Silvestre Lewis M.D. for Renal. REASON FOR ADMISSION: Shortness of breath. HISTORY OF HOSPITAL STAY: A 61-year-old white male with past medical history of diabetes type 2, hypertension, history of coronary artery disease, hyperlipidemia, chronic kidney disease stage 3, obstructive sleep apnea on CPAP, peripheral arterial disease, erectile dysfunction, diabetic foot ulcer [facility] with Dr. Hendrix, presenting with shortness of breath. The patient was admitted for admission for flash pulmonary edema. The patient was also noted to have elevated blood pressure. The patient has been followed up by [facility] secondary to the kidney function worsening. The patient states that he has been gaining 8-10 pounds, and the patient also just started developing pulmonary edema secondary to the fluid overload. The patient was admitted to the floor and worked up for further etiology of shortness of breath. Pulmonary was consulted regarding the shortness of breath and felt it was secondary to the patient's questionable renal function/chronic kidney disease. The patient is already scheduled to follow up with a sleep study on Friday, the day of discharge. More importantly, Renal was consulted regarding the patient's renal function. There is a possible etiology of renal artery stenosis. However, subsequent scans have been negative so far. The patient did not have any imaging of the kidneys done at the time of his admission. However, the patient was put on fluid restriction and Bumex b.i.d. until the patient's renal function improved. More importantly, Renal felt the patient can be safely discharged to follow up on 11/12/2016 with an ultrasound prior to being seen. Ultrasound is for to rule out renal artery stenosis. In addition, the patient also had a consult to be seen by the diabetes educator. The patient's blood sugar was well controlled much during the hospital stay. DISPOSITION: The patient is feeling fine, no complaints. ACTIVITY: As tolerated. DIET: Cardiac/diabetic. Discharge Summary [address] [address] NAME: BELINDA FELDMAN : 59 STATUS : DIS Andrés PAT#: [id number] AGE: 61 ADM/REG DATE : 11/04/16 MR#: [id number] REPORT SERV DATE: 11/07/16 DICTATED BY: ABISAI MURPHY DATE: 11/06/16 REPORT STATUS : Draft TRANSCRIBED BY: RAMIREZ DATE: 11/06/16 INSTRUCTIONS UPON DISCHARGE: 1. The patient to follow up with [facility] with Dr. Hendrix within one week's time. 2. The patient to follow up with Renal on 11/12/2016 with ultrasound of the kidneys to rule out OTIS prior to being seen. 3. Follow up with primary care physician within one to two weeks' time. MEDICATIONS UPON DISCHARGE: 1. Amlodipine 10 mg p.o. daily. 2. Aspirin 81 mg daily. 3. Plavix 75 mg daily. 4. Fenofibrate 160 mg p.o. daily. 5. Novolin subcu continuous infusion. 6. Insulin sliding scale. 7. Zyrtec 10 mg p.o. q.h.s. 8. Bystolic 20 mg p.o. daily. 9. Prilosec 40 mg p.o. daily. 10.Clonidine 0.2 mg topical q.72. 11.Demadex 20 mg p.o. daily. 12.Hydralazine 50 mg p.o. daily. 13.Crestor 40 mg p.o. q.h.s. 14.Ritalin 20 mg p.o. daily. 15.Ritalin 10 mg p.o. at 1400 hours. 16.Probiotic one tabsule q.h.s. 17.Chromium 200 mcg p.o. daily p.r.n. 18.Trulicity 1.5 mg subcu q.7 days. 19.Flonase one spray each nostril q.h.s. p.r.n. 20.Ketotifen ophthalmic drops, one drop q.8 hours p.r.n. DIAGNOSES UPON DISCHARGE: 1. Shortness of breath secondary to pulmonary edema. 2. Pulmonary edema secondary to questionable renal artery stenosis. 3. Chronic kidney disease, stage 4. 4. Hyperlipidemia. 5. Hypertension. 6. Coronary artery disease. 7. Diabetic foot ulcers. 8. Diabetes type 2. 9. Sleep apnea. 10.Peripheral arterial disease. 11.Erectile dysfunction. BROOKE/RAMIREZ Abisai Murphy MD Discharge Summary [address] [address] NAME: BELINDA FELDMAN : 59 STATUS : DIS Andrés PAT#: [id number] AGE: 61 ADM/REG DATE : 11/04/16 MR#: [id number] REPORT SERV DATE: 11/07/16 DICTATED BY: ABISAI MURPHY DATE: 11/06/16 REPORT STATUS : Draft TRANSCRIBED BY: MODL DATE: 11/06/16 / [id number] CC: MD Sean Rg M.D.
[~2016-11-04 13:07] MED LIST changes: +CATPATCH1 TOP
[2016-11-04 14:25] LABS: BASOPHILS 0.3 %; BASOPHILS ABSOLUTE 0.02 10/3/uL (0.0-0.16); EOSINOPHILS ABSOLUTE 0.17 10/3/uL (0.0-0.53); ER CBC TAT 0 Hrs 05 MinsNP; HEMATOCRIT 36.9 % (40.0-51.0); IMMATURE GRANULOCYTES 0.2 %; IMMATURE GRANULOCYTES ABSOLUTE 0.01 10/3/uL (0.0-0.11); LYMPHOCYTES 22.2 %; LYMPHOCYTES ABSOLUTE 1.28 10/3/uL (0.67-4.30); MANUAL DIFF NO %; MEAN CORPUS HGB CONC 32.5 g/dL (32.0-36.0); MEAN CORPUSCULAR HEMOGLOB 28.3 pg (26.0-34.0); MEAN PLATELET VOLUME 9.9 fL (9.2-13.0); MONOCYTES 7.3 %; MONOCYTES ABSOLUTE 0.42 10/3/uL (0.21-1.20); NEUTROPHILS ABSOLUTE 3.86 10/3/uL (2.02-8.40); PLATELET COUNT 221 10/3/uL (150-400); RBC DISTRIBUTION WIDTH 13.9 % (12.0-16.0); RED CELL COUNT 4.24 10/6/uL (4.7-6.1); WHITE BLOOD CELLS 5.8 10/3/uL (4.5-10.5)
[2016-11-04 14:33] LABS: INTERNATIONAL NORMAL RATI 1.1 UNITS (-); PARTIAL THROMBO TIME 24.9 SEC (22.5-37.2); PROTIME (NOT ORD) 13.6 SEC (12.0-14.5)
[2016-11-04 14:42] LABS: CALCIUM, SERUM 9.1 MG/DL (8.5-10.4); CHEST PAIN PROFILE TAT 0 Hrs 22 Mins; CHLORIDE, SERUM 109 MMOL/L (96-112); CO2 (CARBON DIOXIDE) 26 MMOL/L (24-34); GFR AFRICAN AMERICAN 32 ML/MIN (>=60); GFR NON AFRICAN AMERICAN 27 ML/MIN (>=60); GLUCOSE, SERUM 175 MG/DL (60-99); POTASSIUM, SERUM 5.3 MMOL/L (3.5-5.3); SODIUM, SERUM 143 MMOL/L (135-148); TROPONIN I <0.02 NG/ML (<0.05)
[2016-11-04 14:44] LABS: BUN (BLOOD UREA NITROGEN) 41 MG/DL (6-23); CREATININE 2.48 MG/DL (0.70-1.30)
[2016-11-04] MEDS ORDERED: TRULICITY1.5 MG/0.5 SQ (16:46)
[2016-11-04] MEDS ORDERED: PRILOSEC40 MG PO (16:49)
[2016-11-04] MEDS ORDERED: BYSTOLIC20 MG PO (16:51)
[2016-11-04] MEDS ORDERED: CATAPRES2 TOP (16:52)
[2016-11-04] MEDS ORDERED: FLONASE NAS (16:54)
[2016-11-04] MEDS ORDERED: ZADITOR0.025 % OPH (16:54)
[2016-11-05 00:33] LABS: BE (BASE EXCESS) 1.7 MEQ/L (0 +/- 2.5); CARBOXYHEMOGLOBIN 0.3 % (0-3); HCO3 (ACTUAL BICARBONATE) 25.7 MEQ/L (23-27); INSTRUMENT SERIAL # 35151; METHEMOGLOBIN 0.7 % (0-3); O2 CONTENT 15.4 VOL% (18-24); OPERATOR ID 33449; PCO2 (CO2 TENSION) 39 MMHG (35-45); PO2 (O2 TENSION) 61 MMHG (79-93); SAMPLE Arterial; pH 7.44 (7.37-7.43)
[2016-11-05 00:34] LABS: ALLENS TEST Pos
[2016-11-05 06:00] LABS: BASOPHILS 0.7 %; BASOPHILS ABSOLUTE 0.04 10/3/uL (0.0-0.16); EOSINOPHILS 1.8 %; HEMOGLOBIN 11.8 g/dL (13.6-17.8); IMMATURE GRANULOCYTES 0.2 %; IMMATURE GRANULOCYTES ABSOLUTE 0.01 10/3/uL (0.0-0.11); LYMPHOCYTES 29.5 %; LYMPHOCYTES ABSOLUTE 1.61 10/3/uL (0.67-4.30); MANUAL DIFF NO %; MEAN CORPUS HGB CONC 32.8 g/dL (32.0-36.0); MEAN CORPUSCULAR HEMOGLOB 28.6 pg (26.0-34.0); MEAN CORPUSCULAR VOLUME 87.2 fL (80-100); MEAN PLATELET VOLUME 9.9 fL (9.2-13.0); MONOCYTES 8.4 %; MONOCYTES ABSOLUTE 0.46 10/3/uL (0.21-1.20); NEUTROPHILS 59.4 %; NEUTROPHILS ABSOLUTE 3.23 10/3/uL (2.02-8.40); PLATELET COUNT 230 10/3/uL (150-400); RBC DISTRIBUTION WIDTH 13.9 % (12.0-16.0); RED CELL COUNT 4.13 10/6/uL (4.7-6.1); WHITE BLOOD CELLS 5.5 10/3/uL (4.5-10.5)
[2016-11-05 06:01] LABS: INTERNATIONAL NORMAL RATI 1.1 UNITS (-); PROTIME (NOT ORD) 13.8 SEC (12.0-14.5)
[2016-11-05 06:20] LABS: ALBUMIN 3.3 G/DL (3.5-5.0); ALKALINE PHOSPHATASE 72 U/L (45-117); BUN (BLOOD UREA NITROGEN) 40 MG/DL (6-23); CHLORIDE, SERUM 112 MMOL/L (96-112); CO2 (CARBON DIOXIDE) 28 MMOL/L (24-34); CREATININE 2.74 MG/DL (0.70-1.30); DIRECT BILIRUBIN < 0.1 MG/DL (0.0-0.4); GFR AFRICAN AMERICAN 28 ML/MIN (>=60); GFR NON AFRICAN AMERICAN 24 ML/MIN (>=60); GLUCOSE, SERUM 91 MG/DL (60-99); INDIRECT BILIRUBIN(NOT ORDER) 0.2 MG/DL (0.1-0.9); PHOSPHORUS, SERUM 3.7 MG/DL (2.5-4.5); SGOT(AST) 17 U/L (5-40); SGPT(ALT) 27 U/L (5-65); SODIUM, SERUM 147 MMOL/L (135-148); TOTAL BILIRUBIN 0.3 MG/DL (0-1.2); TOTAL PROTEIN 6.5 G/DL (6.0-8.5)
[2016-11-05 08:07] LABS: ASCORBIC ACID (UR NOT ORDER) NEG (NEG); BILIRUBIN, URINE NEGATIVE (NEG); KETONE, URINE NEGATIVE (NEG); LEUKOCYTE ESTERASE(NOT OR NEG (NEG); WBC (NOT ORDERED) (RFLEX) < 1 (0-5)
[2016-11-06 05:48] LABS: ALBUMIN 3.3 G/DL (3.5-5.0); CALCIUM, SERUM 8.8 MG/DL (8.5-10.4); CHLORIDE, SERUM 107 MMOL/L (96-112); CO2 (CARBON DIOXIDE) 27 MMOL/L (24-34); CREATININE 3.02 MG/DL (0.70-1.30); GFR AFRICAN AMERICAN 25 ML/MIN (>=60); GFR NON AFRICAN AMERICAN 22 ML/MIN (>=60); PHOSPHORUS, SERUM 4.3 MG/DL (2.5-4.5); POTASSIUM, SERUM 4.6 MMOL/L (3.5-5.3); SODIUM, SERUM 144 MMOL/L (135-148)
[2016-11-06 05:49] LABS: BUN (BLOOD UREA NITROGEN) 47 MG/DL (6-23); GLUCOSE, SERUM 128 MG/DL (60-99)
[2016-11-06] MEDS ORDERED: DEMA20 PO (16:24)
[2016-11-06] MEDS ORDERED: APRES50 PO (16:25)
[2017-04-16] MEDS ORDERED: TRULICITY1.5 MG/0.5 SQ (11:57)
[2017-04-16] MEDS ORDERED: CRESTOR40 MG PO (11:58)
[2017-04-16] MEDS ORDERED: HALF81 PO (11:58)
[2017-04-16] MEDS ORDERED: ZYRTEC ALLGY10 MG PO (11:58)
[2017-04-16] MEDS ORDERED: NOVLOGPUMP SC (11:58)
[2017-04-16] MEDS ORDERED: PREV30 PO (11:59)
[2017-04-16] MEDS ORDERED: RITALIN20 PO (11:59)
[2017-04-16] MEDS ORDERED: PROBIOTIC PO (11:59)
[2017-04-16] MEDS ORDERED: NORV10 PO (11:59)
[2017-04-16] MEDS ORDERED: RITALIN10 PO (11:59)
[2017-04-16] MEDS ORDERED: BEN25UDL PO (12:00)
[2017-04-16] MEDS ORDERED: BYSTOLIC20 MG PO (12:01)
[2017-04-16] MEDS ORDERED: CATAPRES2 TOP (12:01)
[2017-04-16] MEDS ORDERED: LOFIB160 PO (12:01)
[2017-04-16] MEDS ORDERED: PLAVIX PO (12:01)
[2017-04-16] MEDS ORDERED: APRES50 PO (12:02)
[2017-04-16] MEDS ORDERED: DEMA20 PO (12:02)
[2017-04-16] MEDS ORDERED: K500 PO (12:03)
[2017-04-16] MEDS ORDERED: PATIROMER PO (12:03)
[2017-04-16] MEDS ORDERED: FLONASE NAS (12:03)
[2017-04-16] MEDS ORDERED: PLEXUS DRINK PO (12:09)
== END 2016-11-06 18:02 | disposition home or self-care (01) ==
LOC: ER 13:07 → 7NO 16:45
PROVIDERS: Emergency Medicine; Hospitalist; Nurse Practitioner; Student in an Organized Health Care Education/Training Program
DX: J81.1 Chronic pulmonary edema (principal); I12.9 Hypertensive chronic kidney disease with stage 1 through stage 4 chronic kidney disease, or unspecified chronic kidney disease; E11.22 Type 2 diabetes mellitus with diabetic chronic kidney disease; N18.4 Chronic kidney disease, stage 4 (severe); I73.9 Peripheral vascular disease, unspecified; E78.5 Hyperlipidemia, unspecified; E11.621 Type 2 diabetes mellitus with foot ulcer; I25.10 Atherosclerotic heart disease of native coronary artery without angina pectoris; G47.33 Obstructive sleep apnea (adult) (pediatric); E66.9 Obesity, unspecified; Z79.4 Long term (current) use of insulin; Z86.73 Personal history of transient ischemic attack (TIA), and cerebral infarction without residual deficits; Z95.5 Presence of coronary angioplasty implant and graft; Z98.890 Other specified postprocedural states; Z88.5 Allergy status to narcotic agent; Z88.8 Allergy status to other drugs, medicaments and biological substances
CPT/HCPCS: 36600; 71010; 71020; 76700; 80048; 80069; 80076; 81001; 82805; 82962; 83735; 83880; 84484; 85025; 85610; 85730; 93005; 94660; 96372; 96376; 99285; A9270-GY; G0378; J0360